=== PATIENT | male | born 1955 | race Caucasian/White ===

== ENCOUNTER 2017-03-16 20:06 | Inpatient (IN) | payer BC ==
--- NOTE | 2017-03-16 20:54 | EDM.PDOC ---
ED HPI GENERAL MEDICAL PROBLEM - General Chief Complaint: Fever Stated Complaint: PT HAS FEVER Time Seen by Provider: 03/16/17 20:36 - History of Present Illness INITIAL COMMENTS - FREE TEXT/NARRATIVE: HISTORY AND PHYSICAL: History of present illness: The patient is a 61-year-old male with a history of diffuse large B-cell lymphoma who is currently undergoing chemotherapy with his last chemotherapy 6 days ago. He is scheduled to have more chemotherapy in 2 weeks and also received a shot of Neulasta on of last week. The patient states the last one week he has had intermittent fevers and has had a cough for the last 6 weeks which is not new or different. He has no chest pain or shortness of breath. Patient does have a port in place and there has been no redness to the area and he said no, pain diarrhea but did have one episode of vomiting earlier today without recurrence. He's had no urinary complaints. Patient also has a history in the past of [place] strongest macroglobulinemia. According to the patient he started having pain in his throat on the left side as well as left ear pain today but he has not had any neck pain or headache. Patient did not document his temperature today but says that he felt hot and he saw his primary care physician at [facility] today and had a CBC and brings the results to me. The patient did not have a chest x-ray or blood cultures performed and on the labs done today at approximately 11 AM he had a WBC count of 0.49 with no segs and no bands for an ANC of zero. Patient was notified of these results and presents today in the ER for care. She denies any rashes and has been eating and drinking normally except for that one episode of vomiting. Review of systems: As per history of present illness and below otherwise all systems reviewed and negative. Past medical history: As per history of present illness and as reviewed below otherwise noncontributory. Surgical history: As per history of present illness and as reviewed below otherwise noncontributory. Social history: No reported history of drug or alcohol abuse. Family history: As per history of present illness and as reviewed below otherwise noncontributory. Physical exam: General: Well-developed well-nourished male who is nontoxic and afebrile and here in the ER. He is speaking clearly and easily without distress HEENT: Atraumatic, normocephalic, pupils reactive, negative for conjunctival pallor or scleral icterus, mucous membranes moist, throat clear exudates and only minimal posterior oropharyngeal erythema and uvula is midline, there is no cervical adenopathy or nuchal rigidity, neck supple, nontender, trachea midline.TM on the right is very dulled and there is no external canal debris or mastoid tenderness. There is no mastoid tenderness or external canal debris on the left the TM is grossly erythematous and bulging there is tenderness on this exam. There is no gross perforation seen. Lungs: Clear to auscultation, breath sounds equal bilaterally, chest nontender.No work or breathing or sensory muscle use. Port is seen in the left chest wall without any erythema or swelling. It is not tender. Heart: S1S2, regular, negative for clicks, rubs, or JVD. Abdomen: Soft, nondistended, nontender. NABS Negative for costovertebral tenderness. Pelvis: Stable nontender. Genitourinary: Deferred. Rectal: Deferred. Extremities: Atraumatic, negative for cords or calf pain. Neurovascular unremarkable. Neuro: Awake, alert, oriented. Cranial nerves II through XII unremarkable. Cerebellum unremarkable. Motor and sensory unremarkable throughout. Exam nonfocal. Skin: There is no evidence of any rashes or lesions and turgor is normal. Diagnostics: CBC CMP lactic acid UA urine culture blood cultures x2 chest x-ray Therapeutics: Port access IV fluids neutropenic cautions 2235: Case was discussed with the patient's oncologist Dr. Hdz; he wants the patient to receive antibiotics and be hospitalized. I will discuss this case with our hospitalist as well as with the patient and family at bedside. I will plan on admission. 2244: This was discussed with our hospitalist Dr. Connors; he would like a dose of Zosyn to be given and he agrees with admission Impression: Neutropenic fever, left otitis media Definitive disposition and diagnosis as appropriate pending reevaluation and review of above. left ear Pain Score (Numeric/FACES): 4 - Related Data Allergies Allergy/AdvReac Type Severity Reaction Status Date / Time No Known Allergies Allergy Verified 03/16/17 20:14 Home Meds: Home Meds predniSONE [Prednisone] 2.5 tab PO BID 01/09/16 [History] Past Medical History HEENT History: Other HEENT History: wears glasses Cardiovascular History: Reports: None Respiratory History: Reports: Other (see below) Other Respiratory History: had asthma as a child, no symptoms as an adult. Has not had symptoms since he was in his "20s". Gastrointestinal History: Reports: None Other Gastrointestinal History: Hematochezia Genitourinary History: Reports: None Musculoskeletal History: Reports: Other (see below) Other Musculoskeletal History: has "inflamatory" arthritis which he is on CHRONIC STEROID, PREDNISONE which he takes twice a day. He has not taken his morning dose today. I discussed the possibility of given him a stress dose if needed during the case. Neurological History: Reports: None Psychiatric History: Reports: None Endocrine/Metabolic History: Reports: None Hematologic History: Reports: None Other Hematologic History: Lymphoma Immunologic History: Reports: None Oncologic (Cancer) History: Reports: Lymphoma Dermatologic History: Reports: None - Infectious Disease History Infectious Disease History: Reports: None - Past Surgical History Head Surgeries/Procedures: Reports: None Cardiovascular Surgical History: Reports: None Respiratory Surgical History: Reports: None GI Surgical History: Reports: Colonoscopy, EGD Other GI Surgeries/Procedures: 2 prior Colonoscopies last one in 2013 Endocrine Surgical History: Reports: None Neurological Surgical History: Reports: None Musculoskeletal Surgical History: Reports: None Oncologic Surgical History: Reports: Other (see below) Other Oncologic Surgeries/Procedures: lymph node bx Dermatological Surgical History: Reports: None Social & Family History - Family History Family Medical History: Noncontributory - Tobacco Use Smoking Status *Q: Never Smoker Years of Tobacco use: 20 Used Tobacco, but Quit: Yes Month Tobacco Last Used: 5 years ago - Caffeine Use Caffeine Use: Reports: Coffee - Alcohol Use Days Per Week of Alcohol Use: 2 Number of Drinks Per Day: 5 Total Drinks Per Week: 10 - Recreational Drug Use Recreational Drug Use: No Drug Use in Last 12 Months: No ED ROS GENERAL - Review of Systems Review Of Systems: ROS reveals no pertinent complaints other than HPI. ED EXAM, GENERAL - Physical Exam Exam: See Below (see dictation) Course - Vital Signs Last Recorded V/S: Last Vital Signs Temp 37.8 C 03/16/17 20:16 Pulse 104 H 03/16/17 20:16 Resp 18 03/16/17 20:16 BP 141/77 H 03/16/17 20:16 Pulse Ox 95 03/16/17 20:16 - Orders/Labs/Meds Orders: Active Orders 24 hr Category Date Time Status Patient Status [ADT] Stat ADT 03/16/17 22:47 Ordered Communication Order [RC] STAT Care 03/16/17 20:49 Active Chest 2V [CR] Stat Exams 03/16/17 20:49 Taken CULTURE BLOOD [BC] Stat Lab 03/16/17 21:00 Received CULTURE BLOOD [BC] Stat Lab 03/16/17 21:11 Received CULTURE URINE [RM] Stat Lab 03/16/17 21:05 Received Piperacillin/Tazobactam [Piperacil-Tazobact] 3.375 gm Med 03/16/17 22:48 Ordered Sodium Chloride 0.9% [Normal Saline] 50 ml IV ONETIME Sodium Chloride 0.9% [Normal Saline] 500 ml Med 03/16/17 21:00 Active IV STAT Blood Culture x2 Reflex Set [OM.PC] Stat Oth 03/16/17 20:49 Ordered Medication Orders Sodium Chloride (Normal Saline) 500 mls @ 999 mls/hr IV STAT KVNG Last Admin: 03/16/17 21:09 Dose: 999 mls/hr Labs: Laboratory Tests 03/16/17 03/16/17 03/16/17 Range/Units 21:00 21:00 21:00 WBC 0.58 L (4.0-11.0) K/uL RBC 3.74 L (4.50-5.90) M/uL Hgb 10.3 L (13.0-17.0) g/dL Hct 31.7 L (38.0-50.0) % MCV 84.8 (80.0-98.0) fL MCH 27.5 (27.0-32.0) pg MCHC 32.5 (31.0-37.0) g/dL RDW Std Deviation 56.4 (28.0-62.0) fl RDW Coeff of Sonia 18 H (11.0-15.0) % Plt Count 84 L (150-400) K/uL MPV 8.90 (7.40-12.00) fL Add Manual Diff YES Neutrophils % (Manual) 4 L (48.0-80.0) % Lymphocytes % (Manual) 68 H (16.0-40.0) % Monocytes % (Manual) 26 H (0.0-15.0) % Basophils % (Manual) 2 H (0.0-1.5) % Nucleated RBC % 0.0 /100WBC Absolute Seg Neuts 0 Lymphocytes # (Manual) 0.4 Monocytes # (Manual) 0.2 Basophils # (Manual) 0 Nucleated RBCs # 0 K/uL Lactate 1.0 (0.20-2.00) mmol/L Sodium 135 L (136-146) mmol/L Potassium 3.6 (3.5-5.1) mmol/L Chloride 103 (98-110) mmol/L Carbon Dioxide 22 (21-31) mmol/L BUN 11 (6.0-23.0) mg/dL Creatinine 0.6 (0.6-1.5) mg/dL Est Cr Clr Drug Dosing 132.56 mL/min Estimated GFR (MDRD) > 60.0 ml/min Glucose 97 (60-110) mg/dL Calcium 9.1 (8.8-10.8) mg/dL Total Bilirubin 0.8 (0.1-1.5) mg/dL AST 15 (5-40) IU/L ALT 17 (8-54) IU/L Alkaline Phosphatase 94 (40-150) Total Protein 6.1 (6.0-8.0) g/dL Albumin 3.9 (3.5-5.0) g/dL Globulin 2.2 (2.0-3.5) g/dL Albumin/Globulin Ratio 1.8 (1.3-2.8) Urine Color Urine Appearance Urine pH (5.0-8.0) Ur Specific [place] (1.001-1.035) Urine Protein (NEGATIVE) mg/dL Urine Glucose (UA) (NEGATIVE) mg/dL Urine Ketones (NEGATIVE) mg/dL Urine Occult Blood (NEGATIVE) Urine Nitrite (NEGATIVE) Urine Bilirubin (NEGATIVE) Urine Urobilinogen (<2.0) EU/dL Ur Leukocyte Esterase (NEGATIVE) Urine RBC (0-2/HPF) Urine WBC (0-5/HPF) Ur Epithelial Cells (NONE-FEW) Urine Bacteria (NEGATIVE) Urine Mucus (NONE-MOD) 03/16/17 Range/Units 21:05 WBC (4.0-11.0) K/uL RBC (4.50-5.90) M/uL Hgb (13.0-17.0) g/dL Hct (38.0-50.0) % MCV (80.0-98.0) fL MCH (27.0-32.0) pg MCHC (31.0-37.0) g/dL RDW Std Deviation (28.0-62.0) fl RDW Coeff of Sonia (11.0-15.0) % Plt Count (150-400) K/uL MPV (7.40-12.00) fL Add Manual Diff Neutrophils % (Manual) (48.0-80.0) % Lymphocytes % (Manual) (16.0-40.0) % Monocytes % (Manual) (0.0-15.0) % Basophils % (Manual) (0.0-1.5) % Nucleated RBC % /100WBC Absolute Seg Neuts Lymphocytes # (Manual) Monocytes # (Manual) Basophils # (Manual) Nucleated RBCs # K/uL Lactate (0.20-2.00) mmol/L Sodium (136-146) mmol/L Potassium (3.5-5.1) mmol/L Chloride (98-110) mmol/L Carbon Dioxide (21-31) mmol/L BUN (6.0-23.0) mg/dL Creatinine (0.6-1.5) mg/dL Est Cr Clr Drug Dosing mL/min Estimated GFR (MDRD) ml/min Glucose (60-110) mg/dL Calcium (8.8-10.8) mg/dL Total Bilirubin (0.1-1.5) mg/dL AST (5-40) IU/L ALT (8-54) IU/L Alkaline Phosphatase (40-150) Total Protein (6.0-8.0) g/dL Albumin (3.5-5.0) g/dL Globulin (2.0-3.5) g/dL Albumin/Globulin Ratio (1.3-2.8) Urine Color YELLOW Urine Appearance CLEAR Urine pH 8.5 H (5.0-8.0) Ur Specific [place] 1.015 (1.001-1.035) Urine Protein TRACE (NEGATIVE) mg/dL Urine Glucose (UA) NEGATIVE (NEGATIVE) mg/dL Urine Ketones NEGATIVE (NEGATIVE) mg/dL Urine Occult Blood NEGATIVE (NEGATIVE) Urine Nitrite NEGATIVE (NEGATIVE) Urine Bilirubin NEGATIVE (NEGATIVE) Urine Urobilinogen 4.0 H (<2.0) EU/dL Ur Leukocyte Esterase NEGATIVE (NEGATIVE) Urine RBC 0-2 (0-2/HPF) Urine WBC 0-2 (0-5/HPF) Ur Epithelial Cells RARE (NONE-FEW) Urine Bacteria RARE (NEGATIVE) Urine Mucus LIGHT (NONE-MOD) Meds: Medications Generic Name Dose Route Start Last Admin Trade Name Freq PRN Reason Stop Dose Admin Sodium Chloride 500 mls @ 999 mls/hr 03/16/17 21:00 03/16/17 21:09 Normal Saline IV 999 mls/hr STAT KVNG Administration Departure - Departure Time of Disposition: 22:49 Disposition: Admitted As Inpatient 68 Condition: good Clinical Impression: Neutropenic fever Otitis media Qualifiers: Otitis media type: unspecified Laterality: left Chronicity: unspecified Qualified Code(s): H66.92 - Otitis media, unspecified, left ear - Discharge Information Forms: ED Department Discharge - My Orders Last 24 Hours: My Active Orders 03/16/17 20:49 Communication Order [RC] STAT Chest 2V [CR] Stat Blood Culture x2 Reflex Set [OM.PC] Stat 03/16/17 21:00 CULTURE BLOOD [BC] Stat Sodium Chloride 0.9% [Normal Saline] 500 ml IV STAT 03/16/17 21:05 CULTURE URINE [RM] Stat 03/16/17 21:11 CULTURE BLOOD [BC] Stat 03/16/17 22:47 Patient Status [ADT] Stat 03/16/17 22:48 Piperacillin/Tazobactam [Piperacil-Tazobact] 3.375 gm Sodium Chloride 0.9% [ Normal Saline] 50 ml IV ONETIME - Assessment/Plan Last 24 Hours: My Active Orders 03/16/17 20:49 Communication Order [RC] STAT Chest 2V [CR] Stat Blood Culture x2 Reflex Set [OM.PC] Stat 03/16/17 21:00 CULTURE BLOOD [BC] Stat Sodium Chloride 0.9% [Normal Saline] 500 ml IV STAT 03/16/17 21:05 CULTURE URINE [RM] Stat 03/16/17 21:11 CULTURE BLOOD [BC] Stat 03/16/17 22:47 Patient Status [ADT] Stat 03/16/17 22:48 Piperacillin/Tazobactam [Piperacil-Tazobact] 3.375 gm Sodium Chloride 0.9% [ Normal Saline] 50 ml IV ONETIME
[2017-03-16] MEDS ORDERED: Sodium Chloride 0.9% 500 ML IV SCH (21:00)
[2017-03-16 21:32] LABS: CHLORIDE,CL 103 mmol/L (98-110); SODIUM,NA 135 mmol/L (136-146)
[2017-03-16] MEDS ORDERED: Piperacillin/Tazobactam 3.375 GM in Sodium Chloride 0.9% 50 ML IV ONE (22:48)
[2017-03-16] MEDS ORDERED: Morphine 10 MG/ML Syringe IVPUSH PRN (23:58)
[2017-03-16] MEDS ORDERED: Benzocaine/Cetylpyridinium/Menthol Lozenge MUCMEM PRN (23:58)
[2017-03-17] MEDS: Acetaminophen 325 MG Tab PO PRN ×2 (00:27→23:05)
[2017-03-17] MEDS: Piperacillin/Tazobactam 3.375 GM in Sodium Chloride 0.9% 50 ML IV SCH ×4 (04:19→22:12)
--- NOTE | 2017-03-17 11:34 | PCM.HP ---
H&P History of Present Illness - General Date of Service: 03/17/17 Admit Problem/Dx: Admission Diagnosis/Problem Admission Diagnosis/Problem Neutropenic disorder Source of Information: Patient, Provider - History of Present Illness Initial Comments - Free Text/Narative: he presented to the ED last night with fever and neutropenia as per Dr Freire' s note. He has had a mild cough and ear pain. He had chemotherapy. He had neulasta yesterday. left ear Pain Score (Numeric/FACES): 2 - Related Data Allergies/Adverse Reactions: Allergies Allergy/AdvReac Type Severity Reaction Status Date / Time No Known Allergies Allergy Verified 03/16/17 20:14 Home Medications: Home Meds predniSONE [Prednisone] 2.5 tab PO BID 01/09/16 [History] Amoxicillin/Potassium Clav [Amox Tr-K Clv 875-125 mg Tab] 1 tab PO DAILY [History] Past Medical History HEENT History: Other HEENT History: wears glasses Cardiovascular History: Reports: None Respiratory History: Reports: Other (see below) Other Respiratory History: had asthma as a child, no symptoms as an adult. Has not had symptoms since he was in his "20s". Gastrointestinal History: Reports: None. Denies: Cirrhosis Other Gastrointestinal History: Hematochezia Genitourinary History: Reports: None Musculoskeletal History: Reports: Other (see below) Other Musculoskeletal History: has "inflamatory" arthritis which he is on CHRONIC STEROID, PREDNISONE which he takes twice a day. He has not taken his morning dose today. I discussed the possibility of given him a stress dose if needed during the case. Neurological History: Reports: None Psychiatric History: Reports: None Endocrine/Metabolic History: Reports: None. Denies: Diabetes, type I, Diabetes , type II Hematologic History: Reports: None Other Hematologic History: Lymphoma Immunologic History: Reports: None Oncologic (Cancer) History: Reports: Lymphoma, Other (see below) (waldenstrom's) Dermatologic History: Reports: None - Infectious Disease History Infectious Disease History: Reports: Chicken pox, Measles - Past Surgical History Head Surgeries/Procedures: Reports: None Cardiovascular Surgical History: Reports: None Respiratory Surgical History: Reports: None GI Surgical History: Reports: Colonoscopy, EGD Other GI Surgeries/Procedures: 2 prior Colonoscopies last one in 2013 Endocrine Surgical History: Reports: None Neurological Surgical History: Reports: None Musculoskeletal Surgical History: Reports: None Oncologic Surgical History: Reports: Other (see below) Other Oncologic Surgeries/Procedures: lymph node bx Dermatological Surgical History: Reports: None Social & Family History - Family History Family Medical History: Noncontributory - Tobacco Use Smoking Status *Q: Never Smoker Years of Tobacco use: 20 Used Tobacco, but Quit: Yes Month Tobacco Last Used: 5 years ago - Caffeine Use Caffeine Use: Reports: Coffee - Alcohol Use Days Per Week of Alcohol Use: 2 Number of Drinks Per Day: 5 Total Drinks Per Week: 10 - Recreational Drug Use Recreational Drug Use: No Drug Use in Last 12 Months: No H&P Review of Systems - Review of Systems: Review Of Systems: See Below General: Reports: fever HEENT: Reports: ear pain, sore throat Pulmonary: Reports: Cough. Denies: Shortness of Breath, Wheezing Cardiovascular: Denies: chest pain Gastrointestinal: Reports: Vomiting (x one yesterday). Denies: Abdominal pain, Hematemesis, Hematochezia Genitourinary: Denies: dysuria, hematuria Skin: Denies: cyanosis Psychiatric: Denies: confusion Neurological: Denies: Confusion Exam - Exam Exam: See Below - Vital Signs Vital Signs: Last Vital Signs Temp 99.4 F 03/17/17 08:00 Pulse 84 03/17/17 08:00 Resp 18 03/17/17 08:00 BP 132/70 03/17/17 08:00 Pulse Ox 96 03/17/17 04:00 Weight: 107 kg - Exam General: alert, oriented HEENT: Other (left TM red as per Dr Freire's note) Neck: trachea midline Lungs: Clear to auscultation. No: Rales Cardiovascular: regular rate, regular rhythm Abdomen: Soft. No: Rebound, Tenderness (Male) Exam: Normal inspection Extremities: normal inspection. No: edema Neuro Extensive - Motor, Sensory, Reflexes: CN II-XII intact. No: facial palsy (L), facial palsy (R) - Patient Data Lab Results last 24 hrs: Laboratory Results - last 24 hr 03/17/17 Range/Units 04:30 WBC 0.80 L (4.0-11.0) K/uL RBC 3.63 L (4.50-5.90) M/uL Hgb 9.9 L (13.0-17.0) g/dL Hct 31.0 L (38.0-50.0) % MCV 85.4 (80.0-98.0) fL MCH 27.3 (27.0-32.0) pg MCHC 31.9 (31.0-37.0) g/dL RDW Std Deviation 55.9 (28.0-62.0) fl RDW Coeff of Sonia 18 H (11.0-15.0) % Plt Count 93 L (150-400) K/uL MPV 9.50 (7.40-12.00) fL Add Manual Diff YES Neutrophils % (Manual) 6 L (48.0-80.0) % Band Neutrophils % 2 % Lymphocytes % (Manual) 74 H (16.0-40.0) % Monocytes % (Manual) 14 (0.0-15.0) % Eosinophils % (Manual) 4 (0.0-7.0) % Nucleated RBC % 2.1 /100WBC Absolute Seg Neuts 0 Band Neutrophils # 0 Lymphocytes # (Manual) 0.6 Monocytes # (Manual) 0.1 Eosinophils # (Manual) 0 Nucleated RBCs 1 % Nucleated RBCs # 0 K/uL Result Diagrams: 03/17/17 04:30 03/16/17 21:00 *Q Meaningful Use (ADM) - VTE *Q VTE Criteria *Q: - Stroke *Q Stroke Criteria *Q: - AMI *Q AMI Criteria *Q: - Problem List (1) B-cell lymphoma SNOMED Code(s): 059443280 ICD Code: C85.10 - UNSPECIFIED B-CELL LYMPHOMA, UNSPECIFIED SITE Status: Acute Current Visit: Yes (2) Waldenstrom's disease SNOMED Code(s): 916692409 ICD Code: C88.0 - WALDENSTROM MACROGLOBULINEMIA Status: Acute Current Visit: Yes (3) Neutropenic fever SNOMED Code(s): 382710222 ICD Code: D70.9 - NEUTROPENIA, UNSPECIFIED; R50.81 - FEVER PRESENTING WITH CONDITIONS CLASSIFIED ELSEWHERE Status: Acute Current Visit: Yes (4) Left otitis media SNOMED Code(s): 75742027 ICD Code: H66.92 - OTITIS MEDIA, UNSPECIFIED, LEFT EAR Status: Acute Current Visit: Yes Problem List Initiated/Reviewed/Updated: Yes Orders Last 24hrs: Active Orders 24 hr Category Date Time Status Communication Order [RC] ROUTINE Care 03/16/17 23:44 Active Neutropenic [DIET] Diet 03/16/17 Dinner Active CBC WITH AUTO DIFF [HEME] DAILY Lab 03/18/17 05:00 Ordered CBC WITH AUTO DIFF [HEME] DAILY Lab 03/19/17 05:00 Ordered CBC WITH AUTO DIFF [HEME] DAILY Lab 03/20/17 05:00 Ordered CULTURE THROAT [RM] Routine Lab 03/17/17 00:30 Received Acetaminophen [Tylenol] Med 03/16/17 23:58 Active 650 mg PO Q4H PRN Benzocaine/Cetylpyrd/Menthol [Cepacol Sore Throat] Med 03/16/17 23:58 Active 1 lozenge MUCMEM Q2H PRN Morphine Med 03/16/17 23:58 Active 5 mg IVPUSH Q1H PRN Piperacillin/Tazobactam [Piperacil-Tazobact] 3.375 gm Med 03/17/17 05:00 Active Sodium Chloride 0.9% [Normal Saline] 50 ml IV Q6H Convert IV to Saline Lock [OM.PC] Routine Oth 03/16/17 23:12 Ordered Medication Orders Acetaminophen (Tylenol) 650 mg PO Q4H PRN PRN Reason: Pain/Fever Last Admin: 03/17/17 00:27 Dose: 650 mg Benzocaine/Menthol (Cepacol Sore Throat) 1 lozenge MUCMEM Q2H PRN PRN Reason: Sore Throat Sodium Chloride (Normal Saline) 500 mls @ 999 mls/hr IV STAT KVNG Last Admin: 03/16/17 21:09 Dose: 999 mls/hr Piperacillin Sod/Tazobactam (Sod 3.375 gm/ Sodium Chloride) 50 mls @ 100 mls/ hr IV Q6H KVNG Last Admin: 03/17/17 10:30 Dose: 100 mls/hr Infusion: 03/17/17 04:49 Dose: 100 mls/hr Admin: 03/17/17 04:19 Dose: 100 mls/hr Morphine Sulfate (Morphine) 5 mg IVPUSH Q1H PRN PRN Reason: Pain Assessment/Plan Comment:: admit see orders David Connors MD
--- NOTE | 2017-03-17 16:20 | CR ---
EXAM DATE: 03/16/17 PATIENT'S AGE: 61 Patient: AMINATA BHAT Facility: [place], [place] Site . Site : [id number] Study: XRay Chest [id number]/9/2017 9:42:39 PM Ordering Physician: Mouna Orellana Final Report: INDICATION: FEVER. TECHNIQUE: Chest radiograph 2 views COMPARISON: 10/23/2016. FINDINGS: Cardiovascular and mediastinum: The heart silhouette is normal in size and morphology. The mediastinum is normal in appearance. Lungs and pleural spaces: Both lungs are unremarkable in appearance. No sign of pleural effusion seen. No pneumothorax is identified. Bones and soft tissues: Interval placement of left IJ central venous catheter, tip in the lower SVC. IMPRESSION: 1. No focal pneumonia. Interval placement of left IJ Port-A-Cath. Dictated by David Bhakta MD @ 03/16/2017 10:14:22 PM Dictated by: David Bhakta MD @ 03/16/2017 22:14:29 (Electronic Signature) Report Signed by Proxy. JOJO
[2017-03-18] MEDS: Piperacillin/Tazobactam 3.375 GM in Sodium Chloride 0.9% 50 ML IV SCH ×4 (04:05→22:43)
--- NOTE | 2017-03-18 12:13 | PCM.PN ---
- General Info Date of Service: 03/18/17 - Review of Systems Systems Review Comment:: he is feeling better. His appetite is better. - Patient Data Vitals - most recent: Last Vital Signs Temp 99.0 F 03/18/17 08:00 Pulse 77 03/18/17 08:00 Resp 24 H 03/18/17 08:00 BP 132/66 03/18/17 08:00 Pulse Ox 95 03/18/17 08:00 Weight - most recent: 107 kg I&O - last 24 hours: Intake & Output 03/17/17 03/18/17 03/18/17 22:59 06:59 14:59 Intake Total 2150 650 50 Output Total 1200 1500 Balance 950 -850 50 Lab Results last 24 hrs: Laboratory Results - last 24 hr 03/18/17 Range/Units 05:01 WBC 1.36 L (4.0-11.0) K/uL RBC 3.53 L (4.50-5.90) M/uL Hgb 9.7 L (13.0-17.0) g/dL Hct 29.8 L (38.0-50.0) % MCV 84.4 (80.0-98.0) fL MCH 27.5 (27.0-32.0) pg MCHC 32.6 (31.0-37.0) g/dL RDW Std Deviation 54.3 (28.0-62.0) fl RDW Coeff of Sonia 18 H (11.0-15.0) % Plt Count 107 L (150-400) K/uL MPV 9.30 (7.40-12.00) fL Add Manual Diff YES Neutrophils % (Manual) 18 L (48.0-80.0) % Band Neutrophils % 2 % Lymphocytes % (Manual) 46 H (16.0-40.0) % Monocytes % (Manual) 18 H (0.0-15.0) % Eosinophils % (Manual) 12 H (0.0-7.0) % Basophils % (Manual) 4 H (0.0-1.5) % Nucleated RBC % 2.2 /100WBC Absolute Seg Neuts 0.2 Band Neutrophils # 0 Lymphocytes # (Manual) 0.6 Monocytes # (Manual) 0.2 Eosinophils # (Manual) 0.2 Basophils # (Manual) 0 Nucleated RBCs # 0 K/uL Scott Results last 24 hrs: Microbiology 03/17/17 00:30 Throat Culture - Final Throat Normal Respiratory [place] [facility] Orders - Current: Current Medications Acetaminophen (Tylenol) 650 mg PO Q4H PRN PRN Reason: Pain/Fever Last Admin: 03/17/17 23:05 Dose: 650 mg Benzocaine/Menthol (Cepacol Sore Throat) 1 lozenge MUCMEM Q2H PRN PRN Reason: Sore Throat Last Admin: 03/17/17 23:05 Dose: 1 lozenge Sodium Chloride (Normal Saline) 500 mls @ 999 mls/hr IV STAT KVNG Last Admin: 03/16/17 21:09 Dose: 999 mls/hr Piperacillin Sod/Tazobactam (Sod 3.375 gm/ Sodium Chloride) 50 mls @ 100 mls/ hr IV Q6H KVNG Last Admin: 03/18/17 10:15 Dose: 100 mls/hr Morphine Sulfate (Morphine) 5 mg IVPUSH Q1H PRN PRN Reason: Pain Discontinued Medications Piperacillin Sod/Tazobactam (Sod 3.375 gm/ Sodium Chloride) 50 mls @ 100 mls/ hr IV ONETIME ONE Stop: 03/16/17 23:17 Last Admin: 03/16/17 23:00 Dose: 100 mls/hr - Exam General: alert, oriented HEENT: Other (left TM red) Lungs: Clear to auscultation, Normal respiratory effort Cardiovascular: Regular Rate, Regular Rhythm Abdomen: no tenderness - Problem List & Annotations (1) B-cell lymphoma SNOMED Code(s): 977271608 Code(s): C85.10 - UNSPECIFIED B-CELL LYMPHOMA, UNSPECIFIED SITE Status: Acute Current Visit: Yes (2) Waldenstrom's disease SNOMED Code(s): 132862842 Code(s): C88.0 - WALDENSTROM MACROGLOBULINEMIA Status: Acute Current Visit: Yes (3) Neutropenic fever SNOMED Code(s): 976623929 Code(s): D70.9 - NEUTROPENIA, UNSPECIFIED; R50.81 - FEVER PRESENTING WITH CONDITIONS CLASSIFIED ELSEWHERE Status: Acute Current Visit: Yes (4) Left otitis media SNOMED Code(s): 35975719 Code(s): H66.92 - OTITIS MEDIA, UNSPECIFIED, LEFT EAR Status: Acute Current Visit: Yes - Problem List Review Problem List Initiated/Reviewed/Updated: Yes - My Orders Last 24 Hours: My Active Orders 03/19/17 05:00 CBC WITH AUTO DIFF [HEME] DAILY 03/20/17 05:00 CBC WITH AUTO DIFF [HEME] DAILY - Plan Plan:: admit see orders David Connors MD 03/18/2017 His ANC is trending up. Will continue present care. Anticipate discharge 24 to 48 hours. David Connors MD
[2017-03-19] MEDS: Piperacillin/Tazobactam 3.375 GM in Sodium Chloride 0.9% 50 ML IV SCH ×2 (04:09→11:18)
--- NOTE | 2017-03-19 10:03 | PCM.DCSUM1 ---
Discharge Summary - Hospital Course Brief History: He was admitted with neutropenic fever. - Discharge Data Discharge Date: 03/19/17 Discharge Disposition: Home, Self-Care 01 Condition: Good - Discharge Diagnosis/Problem(s) (1) B-cell lymphoma SNOMED Code(s): 457101970 ICD Code: C85.10 - UNSPECIFIED B-CELL LYMPHOMA, UNSPECIFIED SITE Status: Acute Current Visit: Yes (2) Waldenstrom's disease SNOMED Code(s): 401030491 ICD Code: C88.0 - WALDENSTROM MACROGLOBULINEMIA Status: Acute Current Visit: Yes (3) Neutropenic fever SNOMED Code(s): 870128973 ICD Code: D70.9 - NEUTROPENIA, UNSPECIFIED; R50.81 - FEVER PRESENTING WITH CONDITIONS CLASSIFIED ELSEWHERE Status: Acute Current Visit: Yes (4) Left otitis media SNOMED Code(s): 84676784 ICD Code: H66.92 - OTITIS MEDIA, UNSPECIFIED, LEFT EAR Status: Acute Current Visit: Yes - Patient Summary/Data Hospital Course: He was started on zosyn. He improved. He was also noted to have a left otitis media. His ANC was 0 on admission and is 700 at discharge. He is discharged home on his prior prescription of augmentin as prescribed before admission by Dr [place]. David Connors MD - Discharge Plan Home Medications: Home Meds predniSONE [Prednisone] 2.5 tab PO BID 01/09/16 [History] Amoxicillin/Potassium Clav [Amox Tr-K Clv 875-125 mg Tab] 1 tab PO DAILY [History] Forms: ED Department Discharge Referrals: PCP,None [Primary Care Provider] - - Patient Data Vitals - Most Recent: Last Vital Signs Temp 98.9 F 03/19/17 04:00 Pulse 81 03/19/17 04:00 Resp 18 03/19/17 04:00 BP 116/66 03/19/17 04:00 Pulse Ox 93 L 03/19/17 04:00 Weight - Most Recent: 107 kg I&O - Last 24 hours: Intake & Output 03/18/17 03/19/17 03/19/17 22:59 06:59 14:59 Intake Total 1090 1000 Output Total 480 1200 Balance 610 -200 Lab Results - Last 24 hrs: Laboratory Results - last 24 hr 03/19/17 Range/Units 05:15 WBC 2.47 L (4.0-11.0) K/uL RBC 3.63 L (4.50-5.90) M/uL Hgb 10.0 L (13.0-17.0) g/dL Hct 30.7 L (38.0-50.0) % MCV 84.6 (80.0-98.0) fL MCH 27.5 (27.0-32.0) pg MCHC 32.6 (31.0-37.0) g/dL RDW Std Deviation 54.4 (28.0-62.0) fl RDW Coeff of Sonia 18 H (11.0-15.0) % Plt Count 167 (150-400) K/uL MPV 9.90 (7.40-12.00) fL Add Manual Diff YES Neutrophils % (Manual) 28 L (48.0-80.0) % Band Neutrophils % 2 % Lymphocytes % (Manual) 24 (16.0-40.0) % Monocytes % (Manual) 32 H (0.0-15.0) % Eosinophils % (Manual) 14 H (0.0-7.0) % Nucleated RBC % 0.0 /100WBC Absolute Seg Neuts 0.7 Band Neutrophils # 0 Lymphocytes # (Manual) 0.6 Monocytes # (Manual) 0.8 Eosinophils # (Manual) 0.3 Nucleated RBCs # 0 K/uL ANG[place] Results - Last 24 hrs: Microbiology 03/17/17 00:30 Throat Culture - Final Throat Normal Respiratory [facility] Orders - Current: Current Medications Acetaminophen (Tylenol) 650 mg PO Q4H PRN PRN Reason: Pain/Fever Last Admin: 03/17/17 23:05 Dose: 650 mg Benzocaine/Menthol (Cepacol Sore Throat) 1 lozenge MUCMEM Q2H PRN PRN Reason: Sore Throat Last Admin: 03/17/17 23:05 Dose: 1 lozenge Sodium Chloride (Normal Saline) 500 mls @ 999 mls/hr IV STAT KVNG Last Admin: 03/16/17 21:09 Dose: 999 mls/hr Piperacillin Sod/Tazobactam (Sod 3.375 gm/ Sodium Chloride) 50 mls @ 100 mls/ hr IV Q6H KVNG Last Admin: 03/19/17 04:09 Dose: 100 mls/hr Morphine Sulfate (Morphine) 5 mg IVPUSH Q1H PRN PRN Reason: Pain Discontinued Medications Piperacillin Sod/Tazobactam (Sod 3.375 gm/ Sodium Chloride) 50 mls @ 100 mls/ hr IV ONETIME ONE Stop: 03/16/17 23:17 Last Admin: 03/16/17 23:00 Dose: 100 mls/hr *Q Meaningful Use (DIS) - VTE *Q VTE Criteria *Q: - Stroke *Q Stroke Criteria *Q: - AMI *Q AMI Criteria *Q:
[2017-03-19 10:17] VITALS: BP 118/77
[2017-03-19] MEDS ORDERED: Heparin Sodium 100 Units/ML 3 ML Syringe FLUSH ONE (11:15)
== END 2017-03-19 11:27 | disposition home or self-care (01) | DRG 660 ==
LOC: MW.ED 20:06 → MW.MS 22:47
PROVIDERS: ADMIT Family Medicine; ATTEND Family Medicine
DX: D70.9 Neutropenia, unspecified (principal); C85.10 Unspecified B-cell lymphoma, unspecified site; C88.0 Waldenstrom macroglobulinemia; H66.92 Otitis media, unspecified, left ear; M19.90 Unspecified osteoarthritis, unspecified site; Z79.899 Other long term (current) drug therapy; Z79.52 Long term (current) use of systemic steroids
CPT/HCPCS: 36415; 71020; 71020-26; 80053; 81001; 83605; 85025; 87040; 87070; 87086; 96361; 96374; 99284-25; 99285; A9270-GY; J1642; J2543; J7040; J7050

== ENCOUNTER 2017-05-01 22:20 | Emergency (ER) | payer BC ==
[2017-05-01] MEDS ORDERED: Lidocaine 1% 20 ML MDV ONE (22:32)
[2017-05-01] MEDS ORDERED: Bacitracin Oint 1 GM U/D Packet TOP ONE (22:40)
[2017-05-01] MEDS ORDERED: Lidocaine 1% 20 ML MDV INJECT ONE (22:40)
--- NOTE | 2017-05-01 22:53 | EDM.PDOC ---
ED HPI GENERAL MEDICAL PROBLEM - General Chief Complaint: Upper Extremity Injury/Pain Stated Complaint: LEFT HAND CUT Time Seen by Provider: 05/01/17 22:49 - History of Present Illness INITIAL COMMENTS - FREE TEXT/NARRATIVE: HISTORY AND PHYSICAL: History of present illness: Patient 61-year-old male presents with concern of foreign body in the form of a splinter to the second digit of his left and it occurred prior to arrival he is up-to-date on his tetanus denies any other trauma or concern Review of systems: As per history of present illness and below otherwise all systems reviewed and negative. Past medical history: As per history of present illness and as reviewed below otherwise noncontributory. Surgical history: As per history of present illness and as reviewed below otherwise noncontributory. Social history: No reported history of drug or alcohol abuse. Family history: As per history of present illness and as reviewed below otherwise noncontributory. Physical exam: HEENT: Atraumatic, normocephalic, pupils reactive, negative for conjunctival pallor or scleral icterus, mucous membranes moist, throat clear, neck supple, nontender, trachea midline. Lungs: Clear to auscultation, breath sounds equal bilaterally, chest nontender. Heart: S1S2, regular, negative for clicks, rubs, or JVD. Abdomen: Soft, nondistended, nontender. Negative for masses or hepatosplenomegaly. Negative for costovertebral tenderness. Pelvis: Stable nontender. Genitourinary: Deferred. Rectal: Deferred. Extremities: Patient appears to have what is retained foreign body form with splinter in the volar aspect of the proximal third of the second digit of his left hand CMS neurovascular is unremarkable Neuro: Awake, alert, oriented. Cranial nerves II through XII unremarkable. Cerebellum unremarkable. Motor and sensory unremarkable throughout. Exam nonfocal. Diagnostics: None Therapeutics: Patient was anesthetized with 1% lidocaine without epinephrine 15 blade scalpel small incision was made at the entrance of the wound and a 2.5 cm with splinter was retrieved seemingly answered entirety with no evidence of retention patient tolerated procedure well was irrigated subsequently with copious amount 0.9 normal saline and was closed with 4-0 interrupted nylon suture bacitracin was applied Impression: #1 acute left hand injury (retained foreign body status post removal) Definitive disposition and diagnosis as appropriate pending reevaluation and review of above. left hand Pain Score (Numeric/FACES): 3 - Related Data Allergies Allergy/AdvReac Type Severity Reaction Status Date / Time No Known Allergies Allergy Verified 05/01/17 22:23 Home Meds: Home Meds predniSONE [Prednisone] 2.5 tab PO BID 01/09/16 [History] Past Medical History HEENT History: Other HEENT History: wears glasses Cardiovascular History: Reports: None Respiratory History: Reports: Other (See Below) Other Respiratory History: had asthma as a child, no symptoms as an adult. Has not had symptoms since he was in his "20s". 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 He has not taken his morning dose today. I discussed the possibility of given him a stress dose if needed during the case. Neurological History: Reports: None Psychiatric History: Reports: None Endocrine/Metabolic History: Reports: None Hematologic History: Reports: None Other Hematologic History: Lymphoma Immunologic History: Reports: None Oncologic (Cancer) History: Reports: Lymphoma, Other (See Below) Dermatologic History: Reports: None - Infectious Disease History Infectious Disease History: Reports: Chicken Pox - Past Surgical History Head Surgeries/Procedures: Reports: None Cardiovascular Surgical History: Reports: None GI Surgical History: Reports: Colonoscopy, EGD Other GI Surgeries/Procedures: 2 prior Colonoscopies last one in 2013 Endocrine Surgical History: Reports: None Neurological Surgical History: Reports: None Oncologic Surgical History: Reports: Other (See Below) Dermatological Surgical History: Reports: None Social & Family History - Family History Family Medical History: Noncontributory - Tobacco Use Smoking Status *Q: Never Smoker Years of Tobacco use: 20 Used Tobacco, but Quit: Yes Month Tobacco Last Used: 5 years ago - Caffeine Use Caffeine Use: Reports: Coffee - Alcohol Use Days Per Week of Alcohol Use: 2 Number of Drinks Per Day: 5 Total Drinks Per Week: 10 - Recreational Drug Use Recreational Drug Use: No Drug Use in Last 12 Months: No Review of Systems - Review of Systems Review Of Systems: ROS reveals no pertinent complaints other than HPI. ED EXAM, GENERAL - Physical Exam Exam: See Below (See dictation) Course - Vital Signs Last Recorded V/S: Last Vital Signs Temp 36.5 C 05/01/17 22:23 Pulse 93 05/01/17 22:23 Resp 18 05/01/17 22:23 BP 175/96 H 05/01/17 22:23 Pulse Ox 95 05/01/17 22:23 - Orders/Labs/Meds Meds: Medications Discontinued Medications Generic Name Dose Route Start Last Admin Trade Name Ari PRN Reason Stop Dose Admin Bacitracin 1 dose 05/01/17 22:40 05/01/17 22:42 Bacitracin Oint 1 Gm TOP 05/01/17 22:41 1 dose ONETIME ONE Administration Lidocaine HCl Confirm 05/01/17 22:32 05/01/17 22:43 Xylocaine 1% Administered 05/01/17 22:33 Not Given Dose 20 ml .ROUTE .STK-MED ONE Lidocaine HCl 3 ml 05/01/17 22:40 05/01/17 22:42 Xylocaine 1% INJECT 05/01/17 22:41 3 ml ONETIME ONE Administration Departure - Departure Time of Disposition: 22:52 Disposition: Home, Self-Care 01 Condition: Good Clinical Impression: Hand injury, Hx of retained foreign body fully removed - Discharge Information Forms: ED Department Discharge Additional Instructions: The following information is given to patients seen in the emergency department who are being discharged to home. This information is to outline your options for follow-up care. We provide all patients seen in our emergency department with a follow-up referral. The need for follow-up, as well as the timing and circumstances, are variable depending upon the specifics of your emergency department visit. If you don't have a primary care physician on staff, we will provide you with a referral. We always advise you to contact your personal physician following an emergency department visit to inform them of the circumstance of the visit and for follow-up with them and/or the need for any referrals to a consulting specialist. The emergency department will also refer you to a specialist when appropriate. This referral assures that you have the opportunity for followup care with a specialist. All of these measure are taken in an effort to provide you with optimal care, which includes your followup. Under all circumstances we always encourage you to contact your private physician who remains a resource for coordinating your care. When calling for followup care, please make the office aware that this follow-up is from your recent emergency room visit. If for any reason you are refused follow-up, please contact the [facility] emergency department at and asked to speak to the emergency department charge nurse. Follow-up primary medical doctor wanted today suture removal 10-14 days Keflex as prescribed Motrin or Tylenol as directed return as needed as discussed
[2017-05-01 23:07] VITALS: BP 163/85
== END 2017-05-01 23:00 | disposition home or self-care (01) ==
LOC: MW.ED 22:20
DX: S69.92XA Unspecified injury of left wrist, hand and finger(s), initial encounter (principal); Z87.821 Personal history of retained foreign body fully removed; W45.8XXA Other foreign body or object entering through skin, initial encounter
CPT/HCPCS: 10120; 99283

== ENCOUNTER 2017-05-16 20:56 | Emergency (ER) | payer BC ==
[2017-05-16] MEDS ORDERED: Sodium Chloride 0.9% 10 ML Syringe FLUSH PRN (21:08)
[2017-05-16] MEDS ORDERED: Sodium Chloride 0.9% 1,000 ML IV ONE (21:08)
[2017-05-16] MEDS ORDERED: Sodium Chloride 0.9% 2.5 ML Syringe FLUSH PRN (21:08)
--- NOTE | 2017-05-16 21:14 | EDM.PDOC ---
ED HPI GENERAL MEDICAL PROBLEM - General Chief Complaint: Fever Stated Complaint: PT HAS LOW BLOOD COUNT Time Seen by Provider: 05/16/17 21:06 - History of Present Illness INITIAL COMMENTS - FREE TEXT/NARRATIVE: HISTORY AND PHYSICAL: History of present illness: Patient 61-year-old male presents with a concern of fever and rash he is currently being treated for cancer in his last chemotherapy 10 days prior he has had shingles prior. He states his temperature at home was approximately 101 he denies chills cough chest pain shortness of breath urinary symptoms his rash is confined to his left hemipelvis. Review of systems: As per history of present illness and below otherwise all systems reviewed and negative. Past medical history: As per history of present illness and as reviewed below otherwise noncontributory. Surgical history: As per history of present illness and as reviewed below otherwise noncontributory. Social history: No reported history of drug or alcohol abuse. Family history: As per history of present illness and as reviewed below otherwise noncontributory. Physical exam: HEENT: Atraumatic, normocephalic, pupils reactive, negative for conjunctival pallor or scleral icterus, mucous membranes moist, throat clear, neck supple, nontender, trachea midline. Lungs: Clear to auscultation, breath sounds equal bilaterally, chest nontender. Heart: S1S2, regular, negative for clicks, rubs, or JVD. Abdomen: Soft, nondistended, nontender. Negative for masses or hepatosplenomegaly. Negative for costovertebral tenderness. Pelvis: Stable nontender. Zoster type rash noted left hemipelvis in a dermatomal distribution Genitourinary: Deferred. Rectal: Deferred. Extremities: Atraumatic, negative for cords or calf pain. Neurovascular unremarkable. Neuro: Awake, alert, oriented. Cranial nerves II through XII unremarkable. Cerebellum unremarkable. Motor and sensory unremarkable throughout. Exam nonfocal. Diagnostics: CBC CMP UA urine culture blood culture 2 lactic acid Therapeutics: Normal saline 1 L bolus Impression: #1 history of fever #2 recent chemotherapy #3 shingles Definitive disposition and diagnosis as appropriate pending reevaluation and review of above. - Related Data Allergies Allergy/AdvReac Type Severity Reaction Status Date / Time No Known Allergies Allergy Verified 05/16/17 21:13 Home Meds: Home Meds predniSONE [Prednisone] 2.5 tab PO BID 01/09/16 [History] Past Medical History HEENT History: Other HEENT History: wears glasses Cardiovascular History: Reports: None Respiratory History: Reports: Other (See Below) Other Respiratory History: had asthma as a child, no symptoms as an adult. Has not had symptoms since he was in his "20s". 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 He has not taken his morning dose today. I discussed the possibility of given him a stress dose if needed during the case. Neurological History: Reports: None Psychiatric History: Reports: None Endocrine/Metabolic History: Reports: None Hematologic History: Reports: None Other Hematologic History: Lymphoma Immunologic History: Reports: None Oncologic (Cancer) History: Reports: Lymphoma, Other (See Below) Dermatologic History: Reports: None - Infectious Disease History Infectious Disease History: Reports: Chicken Pox - Past Surgical History Head Surgeries/Procedures: Reports: None Cardiovascular Surgical History: Reports: None GI Surgical History: Reports: Colonoscopy, EGD Other GI Surgeries/Procedures: 2 prior Colonoscopies last one in 2013 Endocrine Surgical History: Reports: None Neurological Surgical History: Reports: None Oncologic Surgical History: Reports: Other (See Below) Dermatological Surgical History: Reports: None Social & Family History - Family History Family Medical History: Noncontributory - Tobacco Use Smoking Status *Q: Never Smoker Years of Tobacco use: 20 Used Tobacco, but Quit: Yes Month Tobacco Last Used: 5 years ago - Caffeine Use Caffeine Use: Reports: Coffee - Alcohol Use Days Per Week of Alcohol Use: 2 Number of Drinks Per Day: 5 Total Drinks Per Week: 10 - Recreational Drug Use Recreational Drug Use: No Drug Use in Last 12 Months: No ED ROS GENERAL - Review of Systems Review Of Systems: ROS reveals no pertinent complaints other than HPI. ED EXAM, GENERAL - Physical Exam Exam: See Below (See dictation) Course - Vital Signs Last Recorded V/S: Last Vital Signs Temp 37.6 C 05/16/17 21:08 Pulse 113 H 05/16/17 21:08 Resp 19 05/16/17 21:08 BP 167/93 H 05/16/17 21:08 Pulse Ox 94 L 05/16/17 21:08 - Orders/Labs/Meds Orders: Active Orders 24 hr Category Date Time Status Chest 2V [CR] Stat Exams 05/16/17 21:25 Ordered Clavicle Rt [CR] Stat Exams 05/16/17 21:09 Stop Req CULTURE BLOOD [BC] Stat Lab 05/16/17 21:20 Received CULTURE BLOOD [BC] Stat Lab 05/16/17 21:20 Received CULTURE URINE [RM] Stat Lab 05/16/17 21:08 Uncollected UA W/MICROSCOPIC [URIN] Stat Lab 05/16/17 21:08 Uncollected Sodium Chloride 0.9% [Saline Flush] Med 05/16/17 21:08 Active 10 ml FLUSH ASDIRECTED PRN Sodium Chloride 0.9% [Saline Flush] Med 05/16/17 21:08 Active 2.5 ml FLUSH ASDIRECTED PRN Blood Culture x2 Reflex Set [OM.PC] Stat Oth 05/16/17 21:08 Ordered Saline Lock Insert [OM.PC] Stat Oth 05/16/17 21:08 Ordered Medication Orders Sodium Chloride (Saline Flush) 10 ml FLUSH ASDIRECTED PRN PRN Reason: Keep Vein Open Sodium Chloride (Saline Flush) 2.5 ml FLUSH ASDIRECTED PRN PRN Reason: Keep Vein Open Labs: Laboratory Tests 05/16/17 05/16/17 05/16/17 Range/Units 20:59 21:20 21:20 WBC 3.95 L (4.0-11.0) K/uL RBC 4.50 (4.50-5.90) M/uL Hgb 12.8 L (13.0-17.0) g/dL Hct 39.4 (38.0-50.0) % MCV 87.6 (80.0-98.0) fL MCH 28.4 (27.0-32.0) pg MCHC 32.5 (31.0-37.0) g/dL RDW Std Deviation 48.4 (28.0-62.0) fl RDW Coeff of Sonia 15 (11.0-15.0) % Plt Count 149 L (150-400) K/uL MPV 9.20 (7.40-12.00) fL Add Manual Diff YES Neutrophils % (Manual) 60 (48.0-80.0) % Band Neutrophils % 4 % Lymphocytes % (Manual) 16 (16.0-40.0) % Monocytes % (Manual) 15 (0.0-15.0) % Eosinophils % (Manual) 2 (0.0-7.0) % Basophils % (Manual) 1 (0.0-1.5) % Metamyelocytes % 1 % Myelocytes % 1 % Nucleated RBC % 0.0 /100WBC Absolute Seg Neuts 2.4 Band Neutrophils # 0.2 Lymphocytes # (Manual) 0.6 Monocytes # (Manual) 0.6 Eosinophils # (Manual) 0.1 Basophils # (Manual) 0 Absolute Metamyelocyte 0 Absolute Myelocytes 0 Nucleated RBCs # 0 K/uL Lactate 0.9 (0.20-2.00) mmol/L Sodium 135 L (136-146) mmol/L Potassium 3.9 (3.5-5.1) mmol/L Chloride 104 (98-110) mmol/L Carbon Dioxide 22 (21-31) mmol/L BUN 11 (6.0-23.0) mg/dL Creatinine 0.8 (0.6-1.5) mg/dL Est Cr Clr Drug Dosing 99.42 mL/min Estimated GFR (MDRD) > 60.0 ml/min Glucose 98 (60-110) mg/dL Calcium 9.4 (8.8-10.8) mg/dL Total Bilirubin 0.4 (0.1-1.5) mg/dL AST 19 (5-40) IU/L ALT 22 (8-54) IU/L Alkaline Phosphatase 127 (40-150) Total Protein 6.4 (6.0-8.0) g/dL Albumin 4.2 (3.5-5.0) g/dL Globulin 2.2 (2.0-3.5) g/dL Albumin/Globulin Ratio 1.9 (1.3-2.8) Meds: Medications Generic Name Dose Route Start Last Admin Trade Name Freq PRN Reason Stop Dose Admin Sodium Chloride 10 ml 05/16/17 21:08 Saline Flush FLUSH ASDIRECTED PRN Keep Vein Open Sodium Chloride 2.5 ml 05/16/17 21:08 Saline Flush FLUSH ASDIRECTED PRN Keep Vein Open Discontinued Medications Generic Name Dose Route Start Last Admin Trade Name Freq PRN Reason Stop Dose Admin Sodium Chloride 1,000 mls @ 999 mls/hr 05/16/17 21:08 05/16/17 21:28 Normal Saline IV 05/16/17 22:08 999 mls/hr STAT ONE Administration Departure - Departure Time of Disposition: 22:39 Disposition: Home, Self-Care 01 Condition: Good Clinical Impression: History of fever, History of lymphoma - Discharge Information Forms: ED Department Discharge Additional Instructions: The following information is given to patients seen in the emergency department who are being discharged to home. This information is to outline your options for follow-up care. We provide all patients seen in our emergency department with a follow-up referral. The need for follow-up, as well as the timing and circumstances, are variable depending upon the specifics of your emergency department visit. If you don't have a primary care physician on staff, we will provide you with a referral. We always advise you to contact your personal physician following an emergency department visit to inform them of the circumstance of the visit and for follow-up with them and/or the need for any referrals to a consulting specialist. The emergency department will also refer you to a specialist when appropriate. This referral assures that you have the opportunity for followup care with a specialist. All of these measure are taken in an effort to provide you with optimal care, which includes your followup. Under all circumstances we always encourage you to contact your private physician who remains a resource for coordinating your care. When calling for followup care, please make the office aware that this follow-up is from your recent emergency room visit. If for any reason you are refused follow-up, please contact the [facility] emergency department at and asked to speak to the emergency department charge nurse. Continue current medications push fluids follow-up primary medical doctor/ oncologist in a.m. return as needed as discussed - My Orders Last 24 Hours: My Active Orders 05/16/17 21:08 CULTURE URINE [RM] Stat UA W/MICROSCOPIC [URIN] Stat Sodium Chloride 0.9% [Saline Flush] 10 ml FLUSH ASDIRECTED PRN Sodium Chloride 0.9% [Saline Flush] 2.5 ml FLUSH ASDIRECTED PRN Blood Culture x2 Reflex Set [OM.PC] Stat Saline Lock Insert [OM.PC] Stat 05/16/17 21:09 Clavicle Rt [CR] Stat 05/16/17 21:20 CULTURE BLOOD [BC] Stat CULTURE BLOOD [BC] Stat 05/16/17 21:25 Chest 2V [CR] Stat - Assessment/Plan Last 24 Hours: My Active Orders 05/16/17 21:08 CULTURE URINE [RM] Stat UA W/MICROSCOPIC [URIN] Stat Sodium Chloride 0.9% [Saline Flush] 10 ml FLUSH ASDIRECTED PRN Sodium Chloride 0.9% [Saline Flush] 2.5 ml FLUSH ASDIRECTED PRN Blood Culture x2 Reflex Set [OM.PC] Stat Saline Lock Insert [OM.PC] Stat 05/16/17 21:09 Clavicle Rt [CR] Stat 05/16/17 21:20 CULTURE BLOOD [BC] Stat CULTURE BLOOD [BC] Stat 05/16/17 21:25 Chest 2V [CR] Stat
[2017-05-16 21:53] LABS: CHLORIDE,CL 104 mmol/L (98-110); SODIUM,NA 135 mmol/L (136-146)
[2017-05-16 22:46] VITALS: BP 152/84
--- NOTE | 2017-05-17 13:56 | CR ---
EXAM DATE: 05/16/17 PATIENT'S AGE: 61 Patient: AMINATA BHAT Facility: [place], [place] Site . Site : 1955 Study: XRay Chest [id number]/9/2017 9:56:23 PM Ordering Physician: Rebecca Bone Final Report: INDICATION: Fever. TECHNIQUE: PA and lateral chest. COMPARISON: March 16, 2017. FINDINGS: Clear lungs. Left-sided Port-A-Cath with its tip in the mid superior vena cava. Normal heart size. No evidence for congestive heart failure. The included skeletal thorax is unremarkable. IMPRESSION: 1. No acute cardiopulmonary process identified. 2. Stable left-sided Port-A-Cath. Dictated by Cordell Lobato MD @ 05/16/2017 10:01:50 PM Dictated by: Cordell Lobato MD @ 05/16/2017 22:01:54 (Electronic Signature) Report Signed by Proxy. JOJO
== END 2017-05-16 23:01 | disposition home or self-care (01) ==
LOC: MW.ED 20:56
DX: R50.9 Fever, unspecified (principal); B02.9 Zoster without complications; C85.90 Non-Hodgkin lymphoma, unspecified, unspecified site
CPT/HCPCS: 71020; 80053; 81001; 83605; 85025; 87040; 87086; 96360; 99283; J7040

== ENCOUNTER 2017-11-25 07:45 | Day surgery (SDC) | payer BC ==
[~2017-11-25 07:45] MED LIST: Lactated Ringers 1,000 ML IV SCH; Midazolam 1 MG/ML 2 ML SDV ONE; Propofol 200 MG/20 ML SDV ONE; Sodium Chloride 0.9% 10 ML Syringe FLUSH PRN; Sodium Chloride 0.9% 2.5 ML Syringe FLUSH PRN; fentaNYL 100 MCG/2 ML SDV ONE
--- NOTE | 2017-11-25 08:38 | PCM.PREANE ---
Preanesthetic Assessment - Anesthesia/Transfusion/Family Hx Anesthesia History: Prior Anesthesia Without Reaction Other Type of Anesthesia Reaction Comment: Denies any problem with prior 2 colonoscopies Family History of Anesthesia Reaction: No Transfusion History: Prior Transfusion Without Reaction Intubation History: Unknown - Review of Systems General: No Symptoms Pulmonary: No Symptoms Cardiovascular: No Symptoms Gastrointestinal: Hematochezia Neurological: No Symptoms Other: Reports: None - Physical Assessment NPO Status Date: 11/23/17 NPO Status Time: 21:00 O2 Sat by Pulse Oximetry: 93 Respiratory Rate: 16 Vital Signs: Last Vital Signs Temp 36.5 C 11/25/17 08:00 Pulse 90 11/25/17 08:00 Resp 16 11/25/17 08:00 BP 135/86 11/25/17 08:00 Pulse Ox 93 L 11/25/17 08:00 Height: 1.75 m Weight: 109.316 kg ASA Class: 3 Airway Class: Mallampati = 2 Dentition: Reports: [place](s) (x7) Thyro-Mental Finger Breadths: 2 Mouth Opening Finger Breadths: 3 ROM/Head Extension: Full Lungs: Clear to Auscultation, Normal Respiratory Effort Cardiovascular: Regular Rate, Regular Rhythm - Allergies Allergies/Adverse Reactions: Allergies Allergy/AdvReac Type Severity Reaction Status Date / Time No Known Allergies Allergy Verified 05/16/17 21:13 - Blood Blood Available: No - Anesthesia Plan Pre-Op Medication Ordered: None - Acknowledgements Anesthesia Type Planned: MAC Pt an Appropriate Candidate for the Planned Anesthesia: Yes Alternatives and Risks of Anesthesia Discussed w Pt/Guardian: Yes Pt/Guardian Understands and Agrees with Anesthesia Plan: Yes PreAnesthesia Questionnaire HEENT History: Other HEENT History: wears glasses Cardiovascular History: Reports: Other (See Below) Other Cardiovascular History: "borderline high blood pressure" Respiratory History: Reports: Other (See Below) Other Respiratory History: had asthma as a child, no symptoms as an adult. Gastrointestinal History: Reports: Diverticulosis, Gastritis Other Gastrointestinal History: rectal bleeding Genitourinary History: Reports: None Musculoskeletal History: Reports: Arthritis Neurological History: Reports: None Psychiatric History: Reports: None Endocrine/Metabolic History: Reports: Obesity/BMI 30+ Hematologic History: Reports: Anemia Other Hematologic History: Lymphoma, has hx of prior platelet infusion Immunologic History: Reports: None Oncologic (Cancer) History: Reports: Lymphoma (non Hodgkine lymphoma ( Waldenstrom's macroglobulinemia ) in '16 - received chemo and stem transplant. PET scan now - increased activity in sigmoid colon) Dermatologic History: Reports: None - Infectious Disease History Infectious Disease History: Reports: Chicken Pox - Past Surgical History Head Surgeries/Procedures: Reports: None HEENT Surgical History: Reports: None Cardiovascular Surgical History: Reports: None Respiratory Surgical History: Reports: None GI Surgical History: Reports: Colonoscopy (2 years ago), EGD Other GI Surgeries/Procedures: 2 prior Colonoscopies Male Surgical History: Reports: None Endocrine Surgical History: Reports: None Neurological Surgical History: Reports: None Musculoskeletal Surgical History: Reports: Other (See Below) Other Musculoskeletal Surgeries/Procedures:: "shoulder bx" - lymph nose biopsy rt. shoulder and neck area Oncologic Surgical History: Reports: Other (See Below) Other Oncologic Surgeries/Procedures: lymph node bx Dermatological Surgical History: Reports: None - SUBSTANCE USE Smoking Status *Q: Former Smoker Other Tobacco Use Within Last Twelve Months: 15 yr history of smoking QUIT 10 years ago Second Hand Smoke Exposure: No Days Per Week of Alcohol Use: 2 Number of Drinks Per Day: 5 Total Drinks Per Week: 10 Recreational Drug Use History: No - HOME MEDS Home Medications: Home Meds Cyanocobalamin (Vitamin B-12) [Vitamin B-12] 100 mcg PO DAILY 11/23/17 [History] Hydrocodone/Acetaminophen [Hydrocodon-Acetaminophen 5-325] 1 tab PO ASDIRECTED PRN 11/23/17 [History] Multivitamin [[place] Multivitamin] 1 tab CHEW DAILY 11/23/17 [History] - CURRENT (IN HOUSE) MEDS Current Meds: Current Medications Lactated Ringer's (Ringers, Lactated) 1,000 mls @ 125 mls/hr IV ASDIRECTED KVNG Last Admin: 11/25/17 08:07 Dose: 125 mls/hr Sodium Chloride (Saline Flush) 10 ml FLUSH ASDIRECTED PRN PRN Reason: Keep Vein Open Sodium Chloride (Saline Flush) 2.5 ml FLUSH ASDIRECTED PRN PRN Reason: Keep Vein Open Sodium Chloride (Saline Flush) 10 ml FLUSH ASDIRECTED PRN PRN Reason: Keep Vein Open Sodium Chloride (Saline Flush) 2.5 ml FLUSH ASDIRECTED PRN PRN Reason: Keep Vein Open Discontinued Medications Fentanyl (Sublimaze) Confirm Administered Dose 100 mcg .ROUTE .STK-MED ONE Stop: 11/25/17 07:36 Lidocaine HCl (Xylocaine-Mpf 1%) Confirm Administered Dose 5 ml .ROUTE .STK-MED ONE Stop: 11/25/17 07:37 Midazolam HCl (Versed 1 Mg/Ml) Confirm Administered Dose 2 mg .ROUTE .STK-MED ONE Stop: 11/25/17 07:36 Propofol (Diprivan 20 Ml) Confirm Administered Dose 200 mg .ROUTE .STK-MED ONE Stop: 11/25/17 07:36
--- NOTE | 2017-11-25 09:45 | PCM.OPNOTE ---
- General Post-Op/Procedure Note Date of Surgery/Procedure: 11/25/17 Operative Procedure(s): Colonoscopy Findings: Colon polyp in the distal descending colon, diverticulosis Pre Op Diagnosis: pet avid colon lesion Post-Op Diagnosis: Colon polyp in the distal descending colon, diverticulosis Anesthesia Technique: MAC Primary Surgeon: Shilpi Hayward Condition: Good
[2017-11-25 10:23] VITALS: BP 107/70
--- NOTE | 2017-11-25 10:39 | OR ---
SURGEON: POLLY JONES MD DATE OF PROCEDURE: 11/25/2017 PREOPERATIVE DIAGNOSIS: PET avid lesion in the sigmoid colon. POSTOPERATIVE DIAGNOSIS: Descending colon polyp, diverticulosis. PROCEDURE PERFORMED: Diagnostic colonoscopy. ANESTHESIA: Monitored anesthesia care. INSTRUMENT USED: Olympus colonoscope. EXTENT OF EXAM: To the cecum. PREPARATION: Fair. LIMITATIONS: None. INDICATIONS: The patient is a 61-year-old male with known lymphoma. On a recent PET scan, he was found to have a PET avid lesion within the sigmoid colon. Given this, the decision was made to perform a diagnostic colonoscopy. The patient and I discussed the procedure as well as expected perioperative course. We discussed the risks including bleeding, infection, or damage to surrounding structures including perforation. The patient verbalized understanding and wishes to proceed. PROCEDURE IN DETAIL: The patient was brought into the endoscopy suite and placed in the left lateral decubitus position. A time-out was completed verifying the patient's name, age, date of , allergies, and procedure to be performed. Monitored anesthesia care was induced and continuous oxygen was provided via nasal cannula throughout the procedure. After adequate sedation was achieved, a digital rectal exam was performed. This exam was within normal limits. A well lubricated colonoscope was inserted in the rectum and advanced under direct visualization to the level of the cecum. The cecum was identified by both visual and anatomic landmarks. A photograph was taken to the cecal cap. I was unable to retroflex the scope within the cecum due to looping of the scope more proximally. The scope was then fully withdrawn while examining the color, texture, anatomy, integrity of the mucosa from the cecum to the anal canal. In the distal descending colon, close to the sigmoid colon junction, a 3 to 4 mm pedunculated polyp was noted. This was removed using a cold snare. It was sent to the lab labeled as descending colon polyp. The remainder of the colon appeared normal with no evidence of any further polyps or mucosal abnormalities. The patient was noted to have diverticulosis within the distal colon. The scope was brought into the rectum and retroflexed to allow visualization of the anal canal opening. This appeared normal and a photograph was taken. The scope was straightened out and removed from the patient. The cecum to anus time was 12 minutes. The patient tolerated the procedure well and was taken to PACU in stable condition. ENDOSCOPIC DIAGNOSES: 1. Descending colon polyp. 2. Diverticulosis. RECOMMENDATIONS: Follow up in clinic in 2 weeks. WILBERTO BARRERA /[id number]
== END 2017-11-25 10:05 | disposition home or self-care (01) ==
LOC: MW.SDS 07:45
PROVIDERS: ATTEND Surgery
DX: K57.30 Diverticulosis of large intestine without perforation or abscess without bleeding (principal); K63.5 Polyp of colon; K62.5 Hemorrhage of anus and rectum; C88.0 Waldenstrom macroglobulinemia; D64.9 Anemia, unspecified; M19.90 Unspecified osteoarthritis, unspecified site; R59.1 Generalized enlarged lymph nodes; E66.9 Obesity, unspecified; C85.90 Non-Hodgkin lymphoma, unspecified, unspecified site; R03.0 Elevated blood-pressure reading, without diagnosis of hypertension; Z79.899 Other long term (current) drug therapy; Z87.891 Personal history of nicotine dependence; Z68.35 Body mass index [BMI] 35.0-35.9, adult
CPT/HCPCS: 45380; J2250; J3010; J7120; 00811; 88305; J2704